=== PATIENT | male | born 1975 | race American Indian/Alaskan Native ===

== ENCOUNTER 2017-11-16 11:11 | Emergency (ER) | payer MEDICAID ==
[2017-11-16 11:13] VITALS: BMI 37.5
--- NOTE | 2017-11-16 11:25 | ED PDOC ---
HPI: General Adult Time Seen by Provider: 11/16/17 11:23 Chief Complaint (Nursing): Male Genitourinary Chief Complaint (Provider): testicular abrasion History Per: Patient (42 y/o male h/o HTN states he is on "bloodthinners" here for evaluation of uncontrolled testicular bleeding noted after shaving today. Patient states he accidentally injured self right testicular region and was unable to control bleeding. Has since wrapped towel around scrotum tightly.) Past Medical History Reviewed: Historical Data, Nursing Documentation, Vital Signs Vital Signs: Last Vital Signs Temp 98.1 F 11/16/17 11:13 Pulse 68 11/16/17 11:13 Resp 20 11/16/17 11:13 BP 160/99 H 11/16/17 11:13 Pulse Ox 96 11/16/17 11:26 - Family History Family History: States: No Known Family Hx - Home Medications Home Medications: Ambulatory Orders Medication Instructions Recorded Bacitracin Ointment [Bacitracin] 0.5 gm TOP BID #1 unit 11/16/17 - Allergies Allergies/Adverse Reactions: Allergies Allergy/AdvReac Type Severity Reaction Status Date / Time No Known Allergies Allergy Verified 11/16/17 11:20 Review of Systems ROS Statement: Except As Marked, All Systems Reviewed And Found Negative Physical Exam - Reviewed Nursing Documentation Reviewed: Yes Vital Signs Reviewed: Yes - Physical Exam Appears: Positive for: Well, Non-toxic, No Acute Distress Head Exam: Positive for: ATRAUMATIC, NORMAL INSPECTION, NORMOCEPHALIC Skin: Positive for: Normal Color, Warm, DRY Eye Exam: Positive for: EOMI, Normal appearance, PERRL ENT: Positive for: Normal ENT Inspection Neck: Positive for: Normal, Painless ROM Cardiovascular/Chest: Positive for: Regular Rate, Rhythm Respiratory: Positive for: CNT, Normal Breath Sounds Gastrointestinal/Abdominal: Positive for: Normal Exam, Bowel Sounds, Soft Male Genital Exam: Positive for: other (no active bleeding noted. abrasion right testicular region noted.) Back: Positive for: Normal Inspection Extremity: Positive for: Normal ROM Neurologic/Psych: Positive for: Alert, Oriented - Laboratory Results Result Diagrams: 11/16/17 11:45 - ECG O2 Sat by Pulse Oximetry: 96 - Progress ED Course And Treament: We will observe in ED for rebleeding. Will await bloodwork results in ED cbc/inr reviewed. wnl. Patient has had no rebleeding in ED. Disposition - Clinical Impression Clinical Impression: Abrasion - Disposition Referrals: [facility] [place] [Outside] Disposition: Routine/Home Disposition Time: 12:49 Condition: FAIR Prescriptions: Bacitracin Ointment [Bacitracin] 0.5 gm TOP BID #1 unit Instructions: Skin Abrasions Forms: [facility] (German)
[2017-11-16 11:56] LABS: BASO % 0.7 % (0.0-2.0); EOS # 0.1 K/uL (0.0-0.7); EOS % 1.7 % (0.0-4.0); HEMOGLOBIN 15.9 g/dL (12.0-18.0); LYMPH # 1.4 K/uL (1.0-4.3); LYMPH % 22.6 % (20.0-40.0); MEAN CELL VOLUME 90.5 fl (80.0-94.0); MEAN CORPUSCULAR HEMOGLOBIN 31.2 pg (27.0-31.0); MEAN CORPUSCULAR HGB CONC 34.5 g/dL (33.0-37.0); MEAN PLATELET VOLUME 8.8 fl (7.2-11.7); MONO # 0.4 K/uL (0.0-0.8); MONO % 6.6 % (0.0-10.0); NEUT # 4.3 K/uL (1.8-7.0); NEUT % 68.4 % (50.0-75.0); NRBC % 0.1 % (0.0-0.0); RBC 5.11 Mil/uL (4.40-5.90); RED CELL DISTRIBUTION WIDTH 13.3 % (11.5-14.5); WHITE BLOOD COUNT 6.2 K/uL (4.8-10.8)
[2017-11-16 12:28] LABS: INR 0.9 (0.9-1.2); PARTIAL THROMBOPLASTIN TIME 33.1 Seconds (25.6-37.1); PROTHROMBIN TIME 10.4 Seconds (9.8-13.1)
[2017-11-16 13:18] VITALS: BP 128/76; PULSE 78; RESP 19; TEMP 97; O2SAT 98
== END 2017-11-16 13:19 | disposition home or self-care (01) ==
LOC: H.ER 11:11
DX: S30.813A Abrasion of scrotum and testes, initial encounter (principal); Y92.89 Other specified places as the place of occurrence of the external cause; Z79.01 Long term (current) use of anticoagulants; I10 Essential (primary) hypertension